=== PATIENT | female | born 1970 | race Caucasian/White ===

== ENCOUNTER → 2024-09-08 13:09 | Outpatient (REF) | payer BC, SELFPAY | LOC: HWWDC 13:09 | PROVIDERS: ATTENDING PHYSICIAN Physician Assistant Medical | DX: Z12.31 Encounter for screening mammogram for malignant neoplasm of breast (principal) | CPT/HCPCS: 77063; 77067 ==

== ENCOUNTER 2024-12-31 18:28 | Emergency (ER) | payer BC, SELFPAY ==
[2024-12-31 18:33] VITALS: BP 118/71
[2024-12-31 18:59] LABS: Hematocrit 38.3 % (37.0-47.0); Hemoglobin 13.1 g/dL (12.0-16.0); Mean Corp Hgb Conc. 34.2 g/dL (33.0-37.0); Mean Corpuscular Volume 89.5 fL (81.0-99.0); Nucleated Red Blood Cells % 0 %; Red Cell Dist. Width 12.4 % (11.5-14.5)
[2024-12-31 19:07] LABS: ALT (SGPT) 21 U/L (0-35); AST (SGOT) 26 U/L (14-36); Albumin 4.8 g/dl (3.5-5.0); Alkaline Phosphatase 65 U/L (38-126); Blood Urea Nitrogen 15 mg/dl (7-17); Calcium 9.5 mg/dl (8.4-10.2); Carbon Dioxide 21 mmol/L (22-30); Chloride 104 mmol/L (98-107); Glucose 156 mg/dl (70-99); Potassium 3.5 mmol/L (3.5-5.1); Sodium 138 mmol/L (135-145); Total Protein 7.6 g/dl (6.3-8.2); eGFR > 60.00
--- NOTE | 2024-12-31 21:48 | ED.GENMED ---
History of Present Illness
General
Chief Complaint: Fainting/Passed Out
Source: patient
Exam Limitations: none
Time Seen by Provider: 12/31/24 21:47
History of Present Illness
History of Present Illness:
54yoF with a history of cutaneous T cell lymphoma in remission and anxiety presenting with her for evaluation after a syncopal episode around 4pm this afternoon. Patient reports having a panic attack this afternoon. She then passed out for
a few seconds. When she came to, she noticed pain in her left ankle and was unable to bear weight. She has a history of syncopal episodes in the past after panic attacks. She has never been diagnosed with any heart condition. She denies any
preceding chest pain, shortness of breath, palpitations although does report that she has been feeling unwell for a few days. Her only current complaint is left ankle pain.
Past History
Past History
ED Past Medical History: Other (Vertigo)
ED Past Surgical History: None
Social History
Tobacco: Non-smoker
Alcohol: None
Personal:
Living: with family
Phy Exam
General Physical Exam
General Presentation: well appearing and no apparent distress
General Skin: warm and dry
General Habitus: normal
General Mental: alert
ENT Exam
ENT Exam: normocephalic
Cardiovascular Exam
Cardiovascular Exam: regular rate/rhythm, no edema and no murmur
Pulmonary Exam
Pulmonary Exam: lungs clear, no respiratory distress, no rales, no crackles, no rhonchi and no wheezing
Neurological Exam
Neurological Exam: alert
Hanna Coma Scale
Eye Opening: Spontaneous
Verbal Response: Oriented
Motor Response: Obeys Commands
GCS Total Score: 15
Musculoskeletal Exam
Musculoskeletal Exam: other (L ankle: No deformity. There is swelling and tenderness to the lateral malleolus. Range of motion mildly decreased. No tenderness in foot or proximal fibula. 2+ DP pulse and sensation intact.)
Skin Exam
Skin Exam: normal color and warm/dry
Psychiatric Exam
Psychiatric Exam: normal mood/affect
Course
Orders/Labs/Results
Orders:
Orders
12/31/24 18:34
Electrocardiogram (*1) Urgent
Reason for Study: Chest Pain
EKG- Treatment ONCE
Ankle, left 3 view CR [CR Ankle - Left Min 3 Views ] Urgent
Comment:
Reason For Exam: pain trauma
12/31/24 18:46
Complete Blood Count/With Diff Urgent
Comprehensive Metabolic Panel Urgent
12/31/24 21:59
Cardiac Monitoring- Treatment ONCE
Crutches-Treatment ONCE
Splints/Slings/Crut- Treatment ONCE
Location: Left
Type of Splint: Short Leg
Comment: Short leg with sugar tong
12/31/24 23:18
Troponin I Urgent
12/31/24 23:19
Ibuprofen [Motrin] 600 mg .ROUTE .STK-MED ONE
12/31/24 23:21
Ibuprofen [Motrin] 600 mg PO NOW STA
Abnormal Lab Results
12/31/24
18:46
Absolute Neuts (auto) 8.1 H 10^3/uL
(1.4-6.5)
Lymphocytes % 18.5 L %
(20.5-51.1)
Carbon Dioxide 21 L mmol/L
(22-30)
Glucose 156 H mg/dl
(70-99)
12/31/24 18:46
12/31/24 18:46
Vital Signs
Initial and Last Documented VS:
Initial Vital Signs
Temp Pulse Resp BP Pulse Ox
98.1 F 98 18 118/71 99
12/31/24 18:33 12/31/24 18:33 12/31/24 18:33 12/31/24 18:33 12/31/24 18:33
Last Documented Vital Signs
Temp Pulse Resp BP Pulse Ox
98.1 F 75 18 118/71 99
12/31/24 18:33 12/31/24 21:45 12/31/24 18:33 12/31/24 18:33 12/31/24 21:49
MDM/Problems Addressed
Differential Diagnosis Includes:
55yoF here after a syncopal episode after a panic attack this evening. Hx of similar events. Denies CP/SOB. Only current complaint is L ankle pain. VSS. She is well-appearing in no acute distress. Left ankle tenderness on exam without deformity.
Exam otherwise reassuring. Differential diagnosis includes but is not limited to: Panic attack, vasovagal syncope, orthostasis, dehydration, cardiogenic syncope
Initial ED plan: Workup initiated in triage. Labs overall unremarkable including normal hemoglobin. EKG shows normal sinus rhythm with nonspecific ST changes. X-rays of ankle reveal a comminuted distal fibular fracture. Will check troponin and
place patient in splint.
*Pulse Oximetry
SaO2: 99
Oxygen Mode of Delivery: Room air
Patient hypoxic: no (99%)
*EKG
Interpreted by ED Provider?: Yes
EKG Intrepretation Date: 12/31/24
Heart Rate: 98
Rate: normal
Rhythm: sinus
[place]: normal axis
Interval: normal interval
QRS Pattern: normal QRS
Ischemia: non-specific ST changes
*Critical Care Note
Total Time (30-74mins, 75-104mins- exclusive of procedures): Not Applicable
Update Note
Update Note:
Patient placed in short leg splint by ED instrumentation technician. Neurovascular status unchanged after splint placement. Troponin within normal limits. She remains asymptomatic on reassessment and continues to deny any chest pain. No indication for
hospitalization. Advised follow-up with PCP and orthopedics. ED return precautions reviewed and patient discharged in stable condition.
ED Attending Note
-
Portions of this chart may have been created with voice recognition software.� Occasional wrong word or��sound alike� substitutions may have occurred due to the inherent limitations of voice recognition software.
Discharge Plan
Departure
Patient Disposition: Home (Routine Discharge)
Date of Disposition: 12/31/24
Time of Disposition: 23:55
Patient with high blood pressure during this ER visit?: No
Discharge Problem:
Syncope, Closed fracture of distal end of left fibula
Instructions: Syncope (Fainting) (DC), Ankle Fracture ED
Prescriptions:
No Action
fluoxetine 20 MG capsule
20 mg PO DAILY
ondansetron 4 MG tablet,disintegrating
4 mg PO Q8HPRN PRN (Reason: Nausea/Vomiting) Qty: 10 0RF
Referrals:
Farhad Yadav MD [Active, Orthopedics]
UNKNOWN - PT DOES,NOT KNOW [Family Provider]
Activity Restrictions/Additional Instructions:
Keep splint in place and do not bear weight until seen by orthopedics.
Please call on Thursday to schedule a follow-up with your family doctor and orthopedic surgery. Return to the ER with any new or worsening symptoms.
Interventions
Interventions:
*Risk Screen - Suicide Last Done: 12/31/24 18:33
*General Assessment Last Done: 12/31/24 23:45
*Neglect/Abuse Screening Last Done: 12/31/24 23:45
*ED- Fall Risk Assessment Last Done: 12/31/24 23:45
*ED COVID-19 Vaccine History Last Done: 12/31/24 23:45
*Nursing Disposition Last Done: 01/01/25 00:00
ED- Cardiac Assessment Last Done: 12/31/24 23:45
ED- Neurological Assessment Last Done: 12/31/24 23:45
Discharge Date and Time
Discharge Date/Time: 01/01/25 00:00
Print Language: ROMANSH
[2024-12-31] MEDS: MOTRIN 600 MG PO (23:21)
[2024-12-31 23:48] LABS: Troponin I < 0.012 ng/ml
== END 2025-01-01 | disposition home or self-care (01) ==
LOC: EMR 18:28
PROVIDERS: Physician Assistant; Student in an Organized Health Care Education/Training Program; EMERGENCY PHYSICIAN Emergency Medicine
DX: R55 Syncope and collapse (principal); S82.832A Other fracture of upper and lower end of left fibula, initial encounter for closed fracture; W19.XXXA Unspecified fall, initial encounter; Z85.72 Personal history of non-Hodgkin lymphomas
CPT/HCPCS: 99285; 29515; 73610; 80053; 84484; 85025; 93005

== ENCOUNTER → 2025-02-13 12:48 | Outpatient (REF) | payer BC, SELFPAY | LOC: WDC 12:48 | PROVIDERS: ATTENDING PHYSICIAN Physician Assistant Medical | DX: R92.30 Dense breasts, unspecified (principal) | CPT/HCPCS: 76641 ==

== ENCOUNTER 2025-03-09 06:22 | Day surgery (SDC) | payer BC, SELFPAY | END 2025-03-09 11:52 | disposition home or self-care (01) | LOC: GI 06:22 | PROVIDERS: ATTENDING PHYSICIAN Internal Medicine Gastroenterology | DX: Z12.11 Encounter for screening for malignant neoplasm of colon (principal); K64.8 Other hemorrhoids; Q43.8 Other specified congenital malformations of intestine; R13.10 Dysphagia, unspecified; R12 Heartburn; K25.9 Gastric ulcer, unspecified as acute or chronic, without hemorrhage or perforation; K31.89 Other diseases of stomach and duodenum; D12.8 Benign neoplasm of rectum; Z86.0100 Personal history of colon polyps, unspecified | CPT/HCPCS: 45385; 45380; 43239; 88305; 88342 ==